=== PATIENT | male | born 1995 | race Hispanic/Latino ===

== ENCOUNTER 2017-01-24 10:36 | Emergency (ER) | payer OTHER ==
[~2017-01-24] VITALS: Ht 182.9 cm; Wt 88.5 kg
[2017-01-24] MEDS ORDERED: METOCLOPRAMIDE 10 MG TAB PO ONE (13:00)
[2017-01-24] MEDS ORDERED: IBUPROFEN 600 MG TAB PO ONE (13:00)
[2017-01-24 13:35] VITALS: BP 135/75
--- NOTE | 2017-01-24 13:39 | REP ---
CT BRAIN WITHOUT CONTRAST: 01/24/2017. Clinical history: Head injury. Findings: No prior study. Patient's head is somewhat tilted in the scanner. Ventricles are midline symmetric and without dilatation or displaced. Basal ganglia is symmetric and normal. Cervantes white junction differentiation is maintained. The cortical stripe is preserved. There is no intra or extra-axial hemorrhage, mass, mass effect or edema. White matter tracts intact. Brainstem and cerebellum grossly intact. There is no posterior fossa hemorrhage. Basal cisterns intact. Mastoids, visualized sinuses, skull base and calvarium are without a fracture or focal lesion. Impression: 1. No intracranial hemorrhage, acute infarct, mass, edema, skull fracture or fracture of the skull base. 2. Sinuses and mastoids clear. Signed by Ivan Vaughan MD 01/24/2017 04:54 P
== END 2017-01-24 13:38 | disposition home or self-care (01) ==
LOC: M ED 12:33
DX: S06.0X0A Concussion without loss of consciousness, initial encounter (principal); W03.XXXA Other fall on same level due to collision with another person, initial encounter; Y92.89 Other specified places as the place of occurrence of the external cause; Y93.67 Activity, basketball; Y99.8 Other external cause status; R51 Headache

== ENCOUNTER → 2018-06-07 | Outpatient (CLI) | payer OTHER ==
[~2018-06-07] MED LIST: CONRAY-43 43% 50ML VIAL (Q9960) As Ordered; PROHANCE 279.3MG/ML 5ML VIAL (A9576) As Ordered
== END ==
LOC: M RADPRO 06:15
DX: S43.431D Superior glenoid labrum lesion of right shoulder, subsequent encounter (principal); M25.511 Pain in right shoulder; Y92.89 Other specified places as the place of occurrence of the external cause; Y93.89 Activity, other specified; X58.XXXA Exposure to other specified factors, initial encounter; Y99.8 Other external cause status
CPT/HCPCS: 23350

== ENCOUNTER 2018-08-01 09:52 | Inpatient (IN) | payer OTHER ==
[2018-08-01 11:24] LABS: HEMATOCRIT 47.8 % (42.0-52.0); MEAN CORPUSCULAR HEMOGLOBIN 29.1 pg (27.0-33.0); MEAN CORPUSCULAR HGB CONC 33.5 g/dl (32.0-36.5); MEAN CORPUSCULAR VOLUME 86.9 fl (80.0-96.0); PLATELET COUNT, AUTOMATED 246 10^3/uL (150-450); RED CELL DISTRIBUTION WIDTH 12.1 % (11.5-14.5); WHITE BLOOD COUNT 6.8 10^3/uL (4.0-10.0)
[2018-08-01 11:39] LABS: ACETAMINOPHEN LEVEL < 2.0 UG/ML (10.0-30.0); ALBUMIN 3.8 GM/DL (3.2-5.2); ALBUMIN/GLOBULIN RATIO 0.95 (1.00-1.93); ALKALINE PHOSPHATASE 77 U/L (45-117); ALT/SGPT 29 U/L (12-78); ANION GAP 5 MEQ/L (8-16); AST/SGOT 25 U/L (7-37); BILIRUBIN,DIRECT 0.1 MG/DL (0.0-0.2); BILIRUBIN,TOTAL 0.6 MG/DL (0.2-1.0); BLOOD UREA NITROGEN 11 MG/DL (7-18); CALCIUM LEVEL 8.8 MG/DL (8.5-10.1); CARBON DIOXIDE LEVEL 30 MEQ/L (21-32); CHLORIDE LEVEL 103 MEQ/L (98-107); CREATININE FOR GFR 0.86 MG/DL (0.70-1.30); GLUCOSE, FASTING 86 MG/DL (70-100); POTASSIUM SERUM 4.3 MEQ/L (3.5-5.1); SALICYLATE LEVEL < 1.7 MG/DL (5.0-30.0); SODIUM LEVEL 138 MEQ/L (136-145); THYROID STIMULATING HORMONE 0.606 uIU/ML (0.463-3.98); TOTAL PROTEIN 7.8 GM/DL (6.4-8.2)
[2018-08-01 12:01] LABS: AMPHETAMINES LEVEL URINE NEGATIVE (NEGATIVE); BARBITURATES URINE NEGATIVE (NEGATIVE); BENZODIAZEPINES URINE NEGATIVE (NEGATIVE); CANNABINOIDS URINE NEGATIVE (NEGATIVE); COCAINE METABOLITE URINE NEGATIVE (NEGATIVE); METHADONE URINE NEGATIVE (NEGATIVE); OPIATES URINE NEGATIVE (NEGATIVE); PHENCYCLIDINE URINE NEGATIVE (NEGATIVE)
[2018-08-01 12:02] LABS: ETHYL ALCOHOL (ETHANOL) < 0.003 % (0.000-0.010)
[2018-08-01] MEDS ORDERED: MOM 30ML SUSPENSION UDC PO (13:15)
[2018-08-01] MEDS ORDERED: MAALOX 30 ML SUSP *UDC PO (13:15)
[2018-08-01] MEDS ORDERED: NICOTINE 14 MG/24 HR TRANSDERMAL TD (14:45)
[2018-08-02] MEDS: NICOTINE 21MG/24HR 1 EA TRANSDERMAL TD (11:07)
[2018-08-02] MEDS: SERTRALINE HCL 25 MG TABLET PO (11:07)
[2018-08-03] MEDS: SERTRALINE HCL 25 MG TABLET PO (08:54)
[2018-08-03] MEDS: NICOTINE 21MG/24HR 1 EA TRANSDERMAL TD (08:55)
[2018-08-03] MEDS: traZODone 50 MG TAB PO (21:16)
[2018-08-04] MEDS: SERTRALINE HCL 25 MG TABLET PO (09:06)
[2018-08-04] MEDS: NICOTINE 21MG/24HR 1 EA TRANSDERMAL TD (09:06)
[2018-08-04] MEDS: traZODone 50 MG TAB PO (21:03)
[2018-08-05] MEDS: SERTRALINE HCL 25 MG TABLET PO (08:51)
[2018-08-05] MEDS: NICOTINE 21MG/24HR 1 EA TRANSDERMAL TD (08:51)
[2018-08-05] MEDS: ACETAMINOPHEN TAB 650MG DOSE (2X325MG) PO (17:10)
[2018-08-05] MEDS: traZODone 100 MG TAB PO (20:04)
[2018-08-06] MEDS: SERTRALINE HCL 25 MG TABLET PO (08:07)
[2018-08-06] MEDS: NICOTINE 21MG/24HR 1 EA TRANSDERMAL TD (08:07)
[2018-08-06] MEDS: traZODone 100 MG TAB PO (21:16)
[2018-08-07] MEDS: NICOTINE 21MG/24HR 1 EA TRANSDERMAL TD (08:15)
[2018-08-07] MEDS: SERTRALINE HCL 25 MG TABLET PO (08:16)
== END 2018-08-07 14:00 | disposition home or self-care (01) | DRG 881 ==
LOC: M ED 09:52 → M ED INP 13:09 → M PSY 13:30
PROVIDERS: Psychiatry & Neurology Psychiatry
DX: F32.9 Major depressive disorder, single episode, unspecified (principal); F17.220 Nicotine dependence, chewing tobacco, uncomplicated; Z81.1 Family history of alcohol abuse and dependence; Z81.8 Family history of other mental and behavioral disorders

== ENCOUNTER 2018-10-31 12:21 | Inpatient (IN) | payer OTHER ==
[~2018-10-31] VITALS: Ht 182.9 cm; Wt 98.7 kg
[~2018-10-31 12:21] MED LIST changes: -CONRAY-43 43% 50ML VIAL (Q9960) As Ordered; -PROHANCE 279.3MG/ML 5ML VIAL (A9576) As Ordered; +SERT25TA PO; +TRAZ10TA PO
[2018-10-31 13:48] LABS: HEMATOCRIT 46.9 % (42.0-52.0); MEAN CORPUSCULAR HEMOGLOBIN 29.7 pg (27.0-33.0); MEAN CORPUSCULAR HGB CONC 34.1 g/dl (32.0-36.5); MEAN CORPUSCULAR VOLUME 87.2 fl (80.0-96.0); PLATELET COUNT, AUTOMATED 254 10^3/uL (150-450); RED BLOOD COUNT 5.38 10^6/uL (4.30-6.10); WHITE BLOOD COUNT 7.7 10^3/uL (4.0-10.0)
[2018-10-31 14:10] LABS: AMPHETAMINES LEVEL URINE NEGATIVE (NEGATIVE); BARBITURATES URINE NEGATIVE (NEGATIVE); BENZODIAZEPINES URINE NEGATIVE (NEGATIVE); CANNABINOIDS URINE NEGATIVE (NEGATIVE); COCAINE METABOLITE URINE NEGATIVE (NEGATIVE); METHADONE URINE NEGATIVE (NEGATIVE); OPIATES URINE NEGATIVE (NEGATIVE); PHENCYCLIDINE URINE NEGATIVE (NEGATIVE)
[2018-10-31 14:26] LABS: ALBUMIN 4.1 GM/DL (3.2-5.2); ALT/SGPT 28 U/L (12-78); BILIRUBIN,DIRECT < 0.1 MG/DL (0.0-0.2); BILIRUBIN,TOTAL 0.3 MG/DL (0.2-1.0); BLOOD UREA NITROGEN 11 MG/DL (7-18); CALCIUM LEVEL 8.5 MG/DL (8.5-10.1); CARBON DIOXIDE LEVEL 26 MEQ/L (21-32); CHLORIDE LEVEL 105 MEQ/L (98-107); CREATININE FOR GFR 0.93 MG/DL (0.70-1.30); ETHYL ALCOHOL (ETHANOL) < 0.003 % (0.000-0.010); GLUCOSE, FASTING 120 MG/DL (70-100); SALICYLATE LEVEL < 1.7 MG/DL (5.0-30.0); SODIUM LEVEL 139 MEQ/L (136-145); TOTAL PROTEIN 7.6 GM/DL (6.4-8.2)
[2018-10-31 14:27] LABS: ACETAMINOPHEN LEVEL < 2.0 UG/ML (10.0-30.0)
[2018-10-31] MEDS ORDERED: MOM 30ML SUSPENSION UDC PO PRN (16:15)
[2018-10-31] MEDS ORDERED: MAALOX 30 ML SUSP *UDC PO PRN (16:15)
[2018-10-31] MEDS ORDERED: SERT25TA PO (16:41)
[2018-10-31 18:02] VITALS: BP 137/84
[2018-10-31] MEDS: ACETAMINOPHEN TAB 650MG DOSE (2X325MG) PO PRN (21:50)
[2018-10-31] MEDS: traZODone 50 MG TAB PO PRN (21:50)
[2018-11-01 06:00] VITALS: BP 126/58
--- NOTE | 2018-11-01 06:30 | ECGEPIP ---
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
--- NOTE | 2018-11-01 10:31 | HPEPDOC ---
[facility] Medical History & Physical Date of Admission Oct 31, 2018 History and Physical PCP: Sly MITTAL ATTENDING: Dr. Kiko Singh HPI: 22 yo M admitted to [facility] for unspecified depressive disorder, being medically examined today. No acute medical complaints today. Denies any fevers, chills, weakness, fatigue, JAY, CP, SOB, cough, palpitations, abdominal pain, N/V/D or changes in bowel or bladder habits. PMHx: Anxiety Depression ADHD History of SI PSHX: Repair of right rotator cuff SOCHX: Resides in: [facility], from [place] Marital Status: Single Kids: None Employment: [employer] Tobacco use: One can of chewing tobacco per day ETOH: Denies Illicit Drugs: Denies IV Drug Use: Denies Tattoos done unprofessionally: 1 FAMHX: Mother: Alive, heart disease, alcohol use Father: Alive, well Siblings: None Children: None Unexpected deaths due to medical reasons: None. ROS: As noted in HPI, otherwise 11pt ROS of systems reviewed and remarkable for left shoulder discomfort. Patient denies any prior injury. Has not had imaging comple araseli. Denies neck pain. No weakness, numbness, or tingling in upper extremities. PE: GEN: 22 yo M, appears stated age. Well-nourished, well developed. No acute distress. Alert and oriented x 3. Pleasant, interactive. HEENT: Normocephalic, atraumatic. Pupils are equal, round, and reactive to light. Extraocular movements are intact. No nystagmus appreciated. Sclera are nonicteric. Conjunctiva without injection. Nose midline. Nasal turbinates without bogginess. EACs both patent BL. TMs both visualized and vasquez with good cone of light, no bulging or erythema. No facial asymmetry. Moist mucous membranes. Dentition fair. Pharynx pink and moist, no cobblestoning. Neck supple , trachea midline. No lymphadenopathy or thyromegaly appreciated. CHEST: Regular rate and rhythm, +S1, +S2 LUNGS: Clear to auscultation bilaterally. No wheezes, rales, or rhonchi. Breathing appears symmetric and easy. Patient is speaking in full sentences. No accessory muscle use. ABD: Round, soft, non-tender, non-distended. +Bowel sounds throughout. No rebound or guarding. No costovertebral angle tenderness. EXT: Pulses 2+ bilaterally dorsalis pedis and radial. No lower extremity edema appreciated. SKIN: [place], dry, warm. Capillary refill <2sec. No rashes. NEURO: Alert and oriented x 3. Cranial nerves III-XII are intact. No focal deficits appreciated. EKG: SINUS RHYTHM POSSIBLE LEFT ATRIAL ENLARGEMENT BENIGN EARLY REPOLARIZATION NO PRIORS FOR COMPARISON Electronically Signed On 11-01-2018 6:30:07 EST by Aamir Cha A&P: 22 yo M admitted to [facility] for unspecified depressive disorder 1. Psych. Plan per Psychiatry. EKG on file. 2. Tattoo done unprofessionally. Patient declines HIV/hepatitis screening at this time. 3. Left shoulder pain. Check x-ray of the shoulder. Tylenol 650 mg every 6 hours as needed. Monitor. 4. Follow up with PCP on discharge. 5. Staff member Navi present throughout exam. Vital Signs Vital Signs Date Time Temp Pulse Resp B/P (MAP) Pulse Ox O2 Delivery O2 Flow Rate FiO2 11/01/18 06:00 98.6 73 14 126/58 (80) 10/31/18 18:02 98 10/31/18 12:36 Room Air Laboratory Data Labs 24H Laboratory Tests 2 10/31/18 13:37: Nucleated Red Blood Cells % (auto) 0.0, Anion Gap 8, Calcium Level 8.5, Aspartate Amino Transf (AST/SGOT) 24, Alanine Aminotransferase (ALT/SGPT) 28, Alkaline Phosphatase 72, Total Bilirubin 0.3, Direct Bilirubin < 0.1, Total Protein 7.6, Albumin 4.1, Albumin/Globulin Ratio 1.17, Thyroid Stimulating Hormone (TSH) 1.490, Salicylates Level < 1.7L, Urine Amphetamines Screen NEGATIVE, Urine Benzodiazepines Screen NEGATIVE, Urine Opiates Screen NEGATIVE, Urine Methadone Screen NEGATIVE, Acetaminophen Level < 2.0L, Urine Barbiturates Screen NEGATIVE, Urine Phencyclidine Screen NEGATIVE, Urine Cocaine Metabolite Screen NEGATIVE, Urine Cannabinoids Screen NEGATIVE, Ethyl Alcohol Level < 0.003 CBC/BMP Laboratory Tests 10/31/18 13:37 Red Blood Count 5.38, Mean Corpuscular Volume 87.2, Mean Corpuscular Hemoglobin 29.7, Mean Corpuscular Hemoglobin Concent 34.1, Red Cell Distribution Width 11.7 Home Medications Scheduled Sertraline Hcl (Sertraline HCl) 25 Mg Tab, 25 MG PO DAILY Allergies Coded Allergies: No Known Drug Allergy (Verified Allergy, Unknown, 01/24/17) Merna Hollins Nov 01, 2018 10:31
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
[2018-11-01] MEDS ORDERED: hydrOXYzine 25 MG TAB PO PRN (15:15)
[2018-11-01 18:00] VITALS: BP 139/87
--- NOTE | 2018-11-01 19:36 | REP ---
LEFT SHOULDER, COMPLETE: 11/01/2018. Clinical history: Shoulder pain. Findings: Standard three views were provided with repeat of one of the AP views because of metal on the patient's shirt. Clavicle, scapula, humerus and ribs are without fracture or focal lesion. There is no subluxation or dislocation. No abnormal soft-tissue calcification. No periosteal reaction to suggest healing fracture. Impression: 1. Negative left shoulder series. Electronically Signed by Ivan Vaughan MD 11/01/2018 09:32 P
[2018-11-01] MEDS: traZODone 50 MG TAB PO PRN (22:06)
[2018-11-01] MEDS: ACETAMINOPHEN TAB 650MG DOSE (2X325MG) PO PRN (22:08)
[2018-11-02 06:42] VITALS: BP 102/55
[2018-11-02] MEDS: SERTRALINE HCL 50 MG TAB PO SCH (09:25)
[2018-11-02] MEDS: ACETAMINOPHEN TAB 650MG DOSE (2X325MG) PO PRN ×2 (09:25→21:38)
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
[2018-11-02 18:00] VITALS: BP 152/90
[2018-11-02] MEDS ORDERED: QUEtiapine FUMARATE 50 MG TAB PO SCH (21:00)
[2018-11-03 06:53] VITALS: BP 135/61
[2018-11-03] MEDS: SERTRALINE HCL 50 MG TAB PO SCH (08:53)
[2018-11-03] MEDS: ACETAMINOPHEN TAB 650MG DOSE (2X325MG) PO PRN (11:49)
[2018-11-03 18:00] VITALS: BP 139/69
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
[2018-11-03] MEDS: QUEtiapine FUMARATE 25 MG TAB PO SCH (21:45)
[2018-11-04 06:40] VITALS: BP 139/62
[2018-11-04] MEDS: SERTRALINE HCL 25 MG TABLET PO SCH (09:12)
[2018-11-04 18:34] VITALS: BP 140/89
[2018-11-04] MEDS: QUEtiapine FUMARATE 25 MG TAB PO SCH (21:00)
[2018-11-05 06:10] VITALS: BP 130/69
[2018-11-05] MEDS: SERTRALINE HCL 25 MG TABLET PO SCH (08:11)
[2018-11-05 18:00] VITALS: BP 134/78
[2018-11-05] MEDS: QUEtiapine FUMARATE 25 MG TAB PO SCH (22:10)
[2018-11-06 06:50] VITALS: BP 141/71
[2018-11-06] MEDS: SERTRALINE HCL 25 MG TABLET PO SCH (08:33)
[2018-11-06] MEDS ORDERED: HYDR-3363 PO (11:00)
[2018-11-06] MEDS ORDERED: SERT25TA PO (11:00)
[2018-11-06] MEDS ORDERED: QUET1TAB7 PO (11:00)
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
== END 2018-11-06 13:25 | disposition home or self-care (01) | DRG 881 ==
LOC: M ED 12:21 → M ED INP 16:08 → M PSY 17:15
PROVIDERS: ADMIT Psychiatry & Neurology Psychiatry; ATTEND Psychiatry & Neurology Psychiatry
DX: F32.9 Major depressive disorder, single episode, unspecified (principal); F34.1 Dysthymic disorder; F43.20 Adjustment disorder, unspecified; Z81.1 Family history of alcohol abuse and dependence; Z91.14 Patient's other noncompliance with medication regimen; Z79.899 Other long term (current) drug therapy; F17.220 Nicotine dependence, chewing tobacco, uncomplicated; M25.512 Pain in left shoulder

== ENCOUNTER 2019-01-12 10:45 | Emergency (ER) | payer OTHER ==
[~2019-01-12] VITALS: Ht 182.9 cm; Wt 101.1 kg
[~2019-01-12 10:45] MED LIST changes: +HYDR-3363 PO; +QUET1TAB7 PO; -SERT25TA PO; +SERT25TA85 PO
[2019-01-12] MEDS ORDERED: ONDANSETRON 4 MG ORAL DISINTEGRATING TAB (Q0162 PER 1MG) PO ONE (12:15)
[2019-01-12] MEDS ORDERED: ONDA4TAB6 PO (12:27)
[2019-01-12 12:39] VITALS: BP 131/88
--- NOTE | 2019-01-12 19:43 | ECGEPIP ---
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
== END 2019-01-12 12:41 | disposition home or self-care (01) ==
LOC: M ED 10:45
DX: R04.0 Epistaxis (principal); R11.0 Nausea; R20.0 Anesthesia of skin; M54.5 Low back pain; F32.9 Major depressive disorder, single episode, unspecified; F17.210 Nicotine dependence, cigarettes, uncomplicated; Z79.899 Other long term (current) drug therapy
CPT/HCPCS: 36415; 80047; 93005; 99284; Q0162

== ENCOUNTER 2019-05-01 09:05 | Emergency (ER) | payer OTHER ==
[~2019-05-01] VITALS: Ht 180.3 cm; Wt 103.6 kg
[~2019-05-01 09:05] MED LIST changes: +ONDA4TAB6 PO
[2019-05-01 10:44] LABS: HEMATOCRIT 50.1 % (42.0-52.0); HEMOGLOBIN 16.6 g/dl (13.5-17.5); MEAN CORPUSCULAR HEMOGLOBIN 29.5 pg (27.0-33.0); MEAN CORPUSCULAR HGB CONC 33.1 g/dl (32.0-36.5); MEAN CORPUSCULAR VOLUME 89.1 fl (80.0-96.0); PLATELET COUNT, AUTOMATED 237 10^3/uL (150-450); RED BLOOD COUNT 5.62 10^6/uL (4.30-6.10); WHITE BLOOD COUNT 5.4 10^3/uL (4.0-10.0)
[2019-05-01 11:10] LABS: ALBUMIN 4.1 GM/DL (3.2-5.2); ALT/SGPT 27 U/L (12-78); BILIRUBIN,DIRECT 0.1 MG/DL (0.0-0.2); BILIRUBIN,TOTAL 0.5 MG/DL (0.2-1.0); BLOOD UREA NITROGEN 12 MG/DL (7-18); CALCIUM LEVEL 9.4 MG/DL (8.5-10.1); CARBON DIOXIDE LEVEL 30 MEQ/L (21-32); CHLORIDE LEVEL 106 MEQ/L (98-107); CREATININE FOR GFR 0.97 MG/DL (0.70-1.30); GLOMERULAR FILTRATION RATE > 60.0 (>60); GLUCOSE, FASTING 89 MG/DL (70-100); LIPASE 97 U/L (73-393); POTASSIUM SERUM 4.3 MEQ/L (3.5-5.1); SODIUM LEVEL 140 MEQ/L (136-145); TOTAL PROTEIN 8.3 GM/DL (6.4-8.2)
--- NOTE | 2019-05-01 12:55 | REP ---
REASON: Flank pain and hematuria. COMPARISON: None. The lung bases are clear. There is no nephroureteral lithiasis, hydronephrosis, or hydroureter. There are no urinary bladder calcifications. There are no choleliths. Limited evaluation of the solid intra-abdominal organs shows no gross abnormalities. Limited evaluation of the pancreas, adrenal glands, and kidneys shows no gross abnormalities. Limited evaluation of the abdominal aorta and para-aortic regions shows no gross abnormalities. Limited evaluation of the bowel loops and the mesenteries shows no gross abnormalities. There is no free fluid or free air in the abdomen or pelvis. There is no evidence of an intra-abdominal or intrapelvic mass or adenopathy. Incidental note is made of a left hemipelvic phlebolith. Bone window technique throughout the exam shows the osseous structures to be within normal limits. IMPRESSION: CT findings are within normal limits. Electronically Signed by Sean Molina DO 05/01/2019 03:30 P
[2019-05-01 13:00] VITALS: BP 157/88
== END 2019-05-01 13:01 | disposition home or self-care (01) ==
LOC: M ED 09:05
DX: R10.84 Generalized abdominal pain (principal); R19.7 Diarrhea, unspecified; R11.0 Nausea; F90.9 Attention-deficit hyperactivity disorder, unspecified type; F32.9 Major depressive disorder, single episode, unspecified; M54.5 Low back pain; F17.220 Nicotine dependence, chewing tobacco, uncomplicated; Z79.899 Other long term (current) drug therapy